=== PATIENT | male | born 1965 | race Caucasian/White ===

== ENCOUNTER 2019-07-20 01:51 | Outpatient (CLI) | payer BC, SELFPAY ==
[2019-07-20 08:52] LABS: Calculated LDL 141 mg/dL; Cholesterol 224 mg/dL (50-200); Glucose 100 mg/dL (70-100); HDL Cholesterol 42 mg/dL (40-60); Triglyceride 207 mg/dL (30-150)
[2019-07-21 10:50] LABS: Hepatitis C Ab w Rflx HCV PCR Negative (NEGAT)
== END 2019-07-20 02:11 ==
PROVIDERS: PCP Family Medicine; Visit Provider Family Medicine
DX: Z00.00 Encounter for general adult medical examination without abnormal findings (principal); R73.01 Impaired fasting glucose; E66.9 Obesity, unspecified; Z11.59 Encounter for screening for other viral diseases; Z13.220 Encounter for screening for lipoid disorders
CPT/HCPCS: 36415; 80061; 82947; 86803; 83036

== ENCOUNTER 2020-01-24 14:47 | Outpatient (REF) | payer BC, SELFPAY ==
[2020-01-24 18:31] LABS: Hemoglobin A1C 5.9 % (3.8-5.6)
== END 2020-01-24 15:07 ==
LOC: NCHCN 14:47
PROVIDERS: PCP Family Medicine; Visit Provider Family Medicine
DX: R73.03 Prediabetes (principal)
CPT/HCPCS: 83036

== ENCOUNTER 2020-10-20 18:35 | Outpatient (REF) | payer BC, SELFPAY ==
[2020-10-20 14:36] LABS: ALT 32 U/L (16-63); AST 21 U/L (15-37); Albumin 3.9 g/dL (3.4-5.0); Alkaline Phosphatase 100 U/L (46-116); Anion Gap 7.8 mmol/L (3-11); BUN 10 mg/dL (7-18); Bilirubin, Total 0.5 mg/dL (0.2-1.0); CO2 29.2 mmol/L (21.0-32.0); CREATININE 1.1 mg/dL (0.70-1.30); Calcium 9.3 mg/dL (8.5-10.1); Calculated LDL 140 mg/dL (<100); Chloride 103 mmol/L (98-107); Cholesterol 246 mg/dL (<200); Glucose 104 mg/dL (74-106); HDL Cholesterol 47 mg/dL (40-60); Potassium 4.6 mmol/L (3.5-5.1); Sodium 140 mmol/L (136-145); Total Protein 7.4 g/dL (6.4-8.2); Triglyceride 297 mg/dL (<150)
[2020-10-20 14:37] LABS: Hemoglobin A1C 5.9 % (<5.7)
== END 2020-10-20 18:36 | disposition home or self-care (01) ==
LOC: NCHCN 18:35
PROVIDERS: PCP Family Medicine; Visit Provider Family Medicine
DX: R73.03 Prediabetes (principal)
CPT/HCPCS: 80053; 80061; 83036

== ENCOUNTER 2021-03-12 15:44 | Outpatient (CLI) | payer OTHER, SELFPAY ==
--- NOTE | 2021-03-12 14:45 | DI.RAD_ITS ---
Exam(s) XR THUMB LT EXAM: XR THUMB LT CLINICAL HISTORY: pain and tingling base left thumb, M79.645. TECHNIQUE: 2D digital imaging was performed. COMPARISON: No exams were available for comparison FINDINGS: There is soft tissue swelling over the interphalangeal joint region. No evidence of acute fracture l angely. However, on the lateral view there are 2 small calcific densities in the soft tissues, 1 volar 1 dorsal to the head-neck region of the proximal phalanx. Neither of these are actually within or i mmediately adjacent to the interphalangeal joint. The metacarpophalangeal joint appears unremarkable . There are mild degenerative changes at the articulation between the thumb metacarpal and trapezium . No ominous osseous lesions in the thumb. IMPRESSION: DATA REPOSITORY: RADIATION DOSE DELIVERED:
== END 2021-03-12 16:04 ==
PROVIDERS: PCP Family Medicine; Visit Provider Nurse Practitioner Family
DX: M79.645 Pain in left finger(s) (principal); R20.2 Paresthesia of skin
CPT/HCPCS: 73140

== ENCOUNTER 2021-10-22 16:45 | Outpatient (REF) | payer BC, SELFPAY ==
[2021-10-22 16:15] LABS: Glucose 101 mg/dL (74-106)
[2021-10-22 16:31] LABS: Hemoglobin A1C 5.8 % (<5.7)
== END 2021-10-22 16:46 | disposition home or self-care (01) ==
LOC: NCHCN 16:45
PROVIDERS: PCP Family Medicine; Visit Provider Family Medicine
DX: R73.03 Prediabetes (principal)
CPT/HCPCS: 82947; 83036

== ENCOUNTER 2022-10-11 15:26 | Outpatient (REF) | payer BC, SELFPAY ==
[2022-10-13 12:21] LABS: COVID-19 RT-PCR UVMMC Result Positive (Negative)
== END 2022-10-11 15:27 | disposition home or self-care (01) ==
LOC: LBN 15:26
PROVIDERS: PCP Family Medicine; Visit Provider Physician Assistant Medical
DX: Z20.822 Contact with and (suspected) exposure to COVID-19 (principal)
CPT/HCPCS: U0003

== ENCOUNTER 2022-12-04 23:55 | Outpatient (REF) | payer BC, SELFPAY ==
[2022-12-05 15:50] LABS: Hemoglobin A1C 5.9 % (<5.7)
[2022-12-06 13:12] LABS: HIV-1/2 Ag & Ab Screen Negative (Negative)
== END 2022-12-04 23:56 | disposition home or self-care (01) ==
LOC: NCHCN 23:55
PROVIDERS: PCP Family Medicine; Visit Provider Family Medicine
DX: Z00.00 Encounter for general adult medical examination without abnormal findings (principal); R73.03 Prediabetes; Z11.4 Encounter for screening for human immunodeficiency virus [HIV]
CPT/HCPCS: 87389; 83036

== ENCOUNTER 2022-12-11 19:49 | Outpatient (REF) | payer BC, SELFPAY ==
[2022-12-11 19:59] LABS: HCT 43.6 % (40.0-50.0); HGB 15.3 g/dL (13.5-17.5); MCH 31.9 pg (27.0-33.0); MCHC 35.1 % (32.0-36.0); MCV 91 fL (80-95); MPV 10.2 fL (8.0-11.0); Platelet Count 209 10^3/uL (130-400); RBC 4.79 10^6/uL (4.36-5.78); RDW-SD 44.1 fL; WBC 6.46 10^3/uL (4.4-10.8)
[2022-12-11 20:38] LABS: Anion Gap 8.4 mmol/L (3-11); BUN 20 mg/dL (7-18); CO2 27.6 mmol/L (21.0-32.0); Calcium 9.9 mg/dL (8.5-10.1); Calculated LDL 156 mg/dL (<100); Chloride 104 mmol/L (98-107); Cholesterol 253 mg/dL (<200); Folate 15.4 ng/mL (8.6-20.0); Glucose 99 mg/dL (74-106); HDL Cholesterol 45 mg/dL (40-60); Potassium 4.2 mmol/L (3.5-5.1); Sodium 140 mmol/L (136-145); Triglyceride 260 mg/dL (<150); Vitamin B12 238 pg/mL (193-986)
== END 2022-12-11 19:50 | disposition home or self-care (01) ==
LOC: NCHCN 19:49
PROVIDERS: PCP Family Medicine; Visit Provider Family Medicine
DX: R20.2 Paresthesia of skin (principal); I10 Essential (primary) hypertension; Z00.00 Encounter for general adult medical examination without abnormal findings
CPT/HCPCS: 80048; 80061; 85027; 82607; 82746

== ENCOUNTER 2023-03-14 15:37 | Outpatient (REF) | payer BC, SELFPAY ==
[2023-03-14 19:30] LABS: ALT 43 U/L (16-63); Calculated LDL 70 mg/dL (<100); Cholesterol 151 mg/dL (<200); HDL Cholesterol 47 mg/dL (40-60); Triglyceride 173 mg/dL (<150); Vitamin B12 314 pg/mL (193-986)
== END 2023-03-14 15:38 | disposition home or self-care (01) ==
LOC: NCHCN 15:37
PROVIDERS: PCP Family Medicine; Visit Provider Family Medicine
DX: E78.5 Hyperlipidemia, unspecified (principal); E53.8 Deficiency of other specified B group vitamins
CPT/HCPCS: 80061; 82607; 84460

== ENCOUNTER 2023-07-21 12:04 | Outpatient (REF) | payer BC, SELFPAY ==
[2023-07-21 17:12] LABS: Vitamin B12 499 pg/mL (193-986)
== END 2023-07-21 12:05 | disposition home or self-care (01) ==
LOC: NCHCN 12:04
PROVIDERS: PCP Family Medicine; Visit Provider Family Medicine
DX: E53.8 Deficiency of other specified B group vitamins (principal)
CPT/HCPCS: 82607

== ENCOUNTER 2024-07-15 01:39 | Outpatient (CLI) | payer OTHER, SELFPAY ==
--- NOTE | 2024-07-15 06:45 | DI.MRI_ITS ---
Exam(s) MR UPPER JOINT RT WO EXAM: MR UPPER JOINT RT WO CLINICAL HISTORY: Persistent pain,rotator cuff impingement syndrome rt shoulder,m75.41. TECHNIQUE: Multiplanar multisequence MRI was performed. COMPARISON: None. FINDINGS: BONES: There is no fracture or contusion pattern. Small degenerative cysts near the greater tuberosit y. JOINTS:The acromioclavicular joint shows hypertrophy and inferior spurring with impingement on the di stal supraspinatus muscle tendon junction. The glenohumeral joint is normal. TENDONS: Supraspinatus: Edema in distal supraspinatus muscle and tendon. Severe partial tear with retraction articular sided fibers to the level of the tip of the acromion. Infraspinatus: Unremarkable. Subscapularis: Unremarkable. Teres [place]: Unremarkable. Biceps and [place]: Unremarkable. MUSCLES: Unremarkable. GLENOID LABRUM: Mild degenerative changes. No visible discrete tear. SOFT TISSUES: Unremarkable. OTHER: Subacromial and subdeltoid bursae shows a small amount of fluid. Small amount of fluid in marinelli bcoracoid bursa.. IMPRESSION: Degenerative changes of the AC joint causing impingement on the supraspinatus. Tendinosis and severe partial tear of supraspinatus tendon. DATA REPOSITORY:
== END 2024-07-15 01:59 ==
LOC: DI 01:39
PROVIDERS: PCP Family Medicine; Visit Provider Nurse Practitioner Family
DX: M75.41 Impingement syndrome of right shoulder (principal)
CPT/HCPCS: 73221

== ENCOUNTER 2024-08-04 07:57 | Emergency (ER) | payer BC, SELFPAY ==
[2024-08-04] VITALS (27 sets, daily range): BP systolic 136–208; BP diastolic 87–122; PULSE 48–78; RESP 12–35; TEMP 35.8–36.4; O2SAT 83–100
--- NOTE | 2024-08-04 08:13 | W.ED.GENAD ---
Discharge Plan Disposition Patient Disposition: Home Condition: Stable Discharge Details Clinical Impression: Abdominal pain of unknown cause, GERD (gastroesophageal reflux disease), Nausea & vomiting, Renal cyst, Hepatic cyst Primary Care Provider: Zulma Mcginnis ED Provider: Sandra Xie Home Meds and New Rx's Prescriptions: New simethicone 125 mg capsule 125 mg PO BID-QID PRNQty: 14 0RF No Action omeprazole 20 mg capsule,delayed release(DR/EC) 20 mg PO DAILY TobraDex 0.3-0.1 % ointment 1 applic ophthalmic (eye) Q8H PRN fluorouracil [Efudex] 5 % cream 1 applic topical BID acetaminophen [Tylenol Extra Strength] 500 mg tablet 500 mg PO Q6H PRN ibuprofen 200 mg tablet 800 mg PO Q6H PRN atorvastatin 40 mg tablet 40 mg PO QPM Patient Comments: TAKE ONE TABLET BY MOUTH EVERY EVENING Discharge Instructions Instructions: Abdominal Pain, Adult ED Additional Instructions: You were seen in the emergency department today for evaluation of abdominal pain with vomiting. In our department he had a full physical examination performed, had laboratory studies that revealed an elevation in your lactate which improved with fluids. You have a CT scan that did not show any abnormalities which might explain your symptoms. We did notice some simple cysts on your liver and kidney which were evaluated by ultrasound and are not concerning and do not require any additional follow-up. It is safe for you to go home and to continue to take all of your medications as prescribed. I provided you with a short course of Zofran for nausea management to maintain your hydration, as well as a medication called simethicone which can help with bloating gas pain. Please follow-up with your primary care provider in the next few days to discuss this visit and any symptoms that change, worsen, or persist. You can return to the emergency department if you develop any sudden change or worsening of your abdominal pain, nausea or vomiting that prevents you from eating and drinking, bloody stools, or any other symptoms that cause you concern. Thank you for allowing us to be part of your care. HPI General Mode of arrival: ambulatory. Date/Time Provider Initiated Documentation: 08/04/24 07:59. Limitations to Documentation: no limitations. Information obtained by: patient and old records reviewed. HPI Narrative: HPI: This is a 58-year-old male patient with a past medical history significant for GERD, who is presenting for evaluation of abdominal pain. The patient reports that he woke up this morning to go to the bathroom and felt typical for him, but shortly after noted some lower abdominal cramping that radiates around to his back. He states that he had the urge to pass stool, it took some time on the toilet before he did eventually pass a large, normal stool with no blood or diarrhea. He also urinated without pain or hematuria. He reports that this did not improve his pain, and additionally notes that he had nausea and 2 episodes of nonbloody emesis. The patient reports he has never had pain like this before. States that he prior to this morning he was in his normal state of health, without fevers, injury, illness. He states that he has never had abdominal surgery, and had a colonoscopy without concerning findings. He tried Pepto-Bismol and his prescribed omeprazole for his symptoms this morning without improvement. Exam: Gen: Awake and alert, appears uncomfortable and unable to find a comfortable position HEENT: Non-icteric sclera Neck: Supple Lungs: No apparent respiratory distress, normal respiratory effort. Lung sounds clear and equal bilaterally CV: Appears well perfused, heart with regular rate and rhythm, strong distal pulses Abdomen: Non-distended, soft, minimal tenderness to palpation without rigidity, rebound, or guarding. MSK: Moves 4 extremities without apparent limitation in ROM Skin: Visualized skin without rashes, cyanosis. Neuro: Normal Gait, no obvious focal deficits or facial asymmetry. Speaks in full, clear sentences. Psych: Appropriate for situation. MDM: This is a 58-year-old male patient presenting for evaluation of abdominal pain with nausea and vomiting. My differential includes but is not limited to mesenteric ischemia, especially given the patient's hypertension and his pain out of proportion to physical examination. Certainly considered other intra-abdominal abnormalities including SBO, diverticulitis, appendicitis, gastroenteritis, pancreatitis, hepatitis, cholecystitis, nephrolithiasis, pyelonephritis/UTI. The patient has no testicular pain to suggest torsion, and the brief duration of the symptoms does decrease my concern for metabolic and electrolyte derangements, kidney injury, dehydration. Will obtain laboratory workup to include CBC, CMP, lipase, lactate, UA. I will obtain a CTA of the abdomen and pelvis to better characterize any abnormalities. I will provide the patient with intravenous Tylenol and Zofran for initial management of symptoms. ED Course: I independently interpreted the laboratory studies, which show no significant leukocytosis, anemia, or thrombocytopenia. The chemistry panel is without evidence of electrolyte abnormality, kidney dysfunction, or liver injury. Lactate is elevated to 4.1 however, for which she received a liter of IV fluids. I independently interpreted the CT scan and discussed the findings with the hospitalist. There is no evidence of vascular abnormality or ischemia of the bowel, and otherwise the CT abdomen pelvis does not show any abnormalities which might account for the patient's symptoms. There were some incidental findings including liver cyst, renal cyst, and radiology recommended that we obtain an ultrasound to better characterize one of the renal cysts. This was done and this was found to be a simple hemorrhagic cyst, not requiring any additional follow-up. On reassessment the patient has had improvement in his pain, has not had vomiting and tolerated p.o. intake. I prescribed him simethicone for ongoing gas pain, and we discussed return precautions. At this time, the patient has had a full medical evaluation and is safe for discharge to home. They are hemodynamically stable, ambulatory, and tolerating PO. They are understanding of the follow-up plan and return precautions. They left our facility without incident. Sandra Xie MD Related Data Home Medications ?Medication ?Instructions ?Recorded ?Confirmed fluorouracil 5 % topical cream 1 applic topical BID 08/16/22 08/04/24 (Efudex) omeprazole 20 mg capsule,delayed 20 mg PO DAILY 08/16/22 08/04/24 release tobramycin-dexamethasone 0.3 %-0.1 1 applic ophthalmic (eye) Q8H PRN 08/16/22 08/04/24 % eye ointment (TobraDex) acetaminophen 500 mg tablet 500 mg PO Q6H PRN 08/19/22 08/04/24 (Tylenol Extra Strength) ibuprofen 200 mg tablet 800 mg PO Q6H PRN 08/19/22 08/04/24 atorvastatin 40 mg tablet 40 mg PO QPM 08/04/24 08/04/24 simethicone 125 mg capsule 125 mg PO BID-QID PRN #14 caps 08/04/24 Previous Rx's ?Medication ?Instructions ?Recorded simethicone 125 mg capsule 125 mg PO BID-QID PRN #14 caps 08/04/24 Allergies Allergy/AdvReac Type Severity Reaction Status Date / Time No Known Allergies Allergy Verified 08/04/24 08:00 General Stated Complaint: Abd Prob PO: 3 Course Vital Signs Vital signs: Vital Signs Temperature 35.8 C L 08/04/24 08:01 Pulse 65 08/04/24 08:01 Respiratory Rate 18 08/04/24 08:01 Blood Pressure 208/122 H 08/04/24 08:01 Pulse Oximetry 99 08/04/24 08:01 Temperature 35.8 C L 08/04/24 08:01 Temperature Source Temporal Artery Scan 08/04/24 08:01 Pulse 65 08/04/24 08:01 Respiratory Rate 18 08/04/24 08:01 Respiratory Effort Normal, Non-Labored 08/04/24 08:03 Blood Pressure 208/122 H 08/04/24 08:01 Blood Pressure Position Sitting 08/04/24 08:01 Pulse Oximetry 99 08/04/24 08:01 Oxygen Delivery Method Room Air 08/04/24 08:01 Oxygen Flow Rate 0 08/04/24 08:01 Pain Level 7 08/04/24 08:01 Comment pepto [employer] MIRROR 08/04/24 08:01 Medical Decision Making Quality:SDOH Health Related Social Needs: No Data to Display PFSH All Active Problems (Updated 08/04/24 @ 13:43 by Sandra Xie MD) Hepatic cyst (Acute) Renal cyst (Acute) Nausea & vomiting (Acute) Abdominal pain of unknown cause (Acute) Supraspinatus tendon tear (Acute) Rotator cuff impingement syndrome of right shoulder (Acute) GERD (gastroesophageal reflux disease) (Chronic) Anal fissure (Acute) Strain of left knee (Acute) Actinic keratosis (Acute) Trigger finger of left thumb (Acute) Neuroma (Acute) Numbness and tingling of left thumb (Acute) Pain of left thumb (Acute) Sebaceous cyst (Acute) 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) Back pain (Acute) Medical History Sensorineural hearing loss, unilateral (10/18/13) Seborrheic keratosis (02/05/16) Basal cell carcinoma (02/05/16) Obesity Surgical History History of shoulder surgery left History of colonoscopy (~08/2015) History of vasectomy (~09/2004) Social History Smoking/Tobacco Use Status: Never Smoking risk assessment performed?: Yes Alcohol Intake: current Alcohol Intake frequency: 0-2 drinks per day Drug use: Socially Substance use type: marijuana Household members: spouse Housing: house Current gender identity: male Do you feel safe at home: Yes Do you feel safe in your relationship?: Yes
[2024-08-04 08:28] LABS: Abs Immature Grans 0.05 10^3/uL (0.0-0.06); Absolute Basophil Count 0.03 10^3/uL (0.0-0.2); Absolute Eosinophil Count 0.01 10^3/uL (0.0-0.7); Absolute Lymphocyte Count 1.42 10^3/uL (1.2-3.4); Absolute Monocyte Count 0.48 10^3/uL (0.1-0.8); Absolute Neutrophil Count 9.54 10^3/uL (1.2-6.7); Basophils % 0.3 %; Eosinophils % 0.1 %; HCT 44.9 % (40.0-50.0); HGB 15.4 g/dL (13.5-17.5); Immature Grans % 0.4 %; Lymphocytes % 12.3 %; MCH 32.2 pg (27.0-33.0); MCHC 34.3 % (32.0-36.0); MCV 94 fL (80-95); MPV 9.4 fL (8.0-11.0); Monocytes % 4.2 %; Neutrophils % 82.7 %; Platelet Count 217 10^3/uL (130-400); RBC 4.79 10^6/uL (4.36-5.78); RDW 12.6 % (11.8-14.1); RDW-SD 43.3 fL; WBC 11.54 10^3/uL (4.4-10.8)
[2024-08-04 08:33] LABS: Lactate 4.15 mmol/L (0.9-1.7)
[2024-08-04] MEDS: ACETAMINOPHEN 1,000 MG/100 ML BAG 400 MG IVPB (08:38)
[2024-08-04] MEDS: Ondansetron 4 MG/2 ML VIAL IVP (08:39)
[2024-08-04] MEDS: Lactated Ringers 1,000 ML 1000 ML IV (08:43)
[2024-08-04 08:55] LABS: ALT 49 U/L (16-63); AST 35 U/L (15-37); Albumin 4.1 g/dL (3.4-5.0); Alkaline Phosphatase 118 U/L (46-116); Anion Gap 11.8 mmol/L (3-11); BUN 24 mg/dL (7-18); CO2 22.2 mmol/L (21.0-32.0); CREATININE 1.2 mg/dL (0.70-1.30); Chloride 106 mmol/L (98-107); Estimated GFR 69.23 (mL/min/1.73m2); Glucose 173 mg/dL (74-106); Lipase 44 U/L (16-77); Magnesium 1.8 mg/dL (1.8-2.4); Potassium 3.5 mmol/L (3.5-5.1); Sodium 140 mmol/L (136-145); Total Protein 7.7 g/dL (6.4-8.2)
[2024-08-04 08:57] LABS: Troponin I < 4 ng/L (<or=76)
--- NOTE | 2024-08-04 09:41 | DI.CT_ITS ---
Exam(s) CT ABDOMEN PELVIS CTA EXAM: CT ABDOMEN PELVIS CTA CLINICAL HISTORY: lower abd pain, out of proportion to exam. TECHNIQUE: Imaging Protocol: Axial computed tomography images with coronal and sagittal reformatted images were created and reviewed CONTRAST MATERIAL: Intravenous: Omnipaque 350 Contrast volume:100 ml Oral: None COMPARISON: No exams were available for comparison FINDINGS: ABDOMEN: AORTA: There is no evidence of abdominal aortic aneurysm nor dissection.There is no aneurysmal dilatation of the common iliac arteries.The celiac and superior mesenteric arteries are patent.No significant sten osis at the origin of these vessels and no intraluminal thrombi evident. The inferior mesenteric art anibal is also patent. Renal arteries are patent without significant stenosis nor evidence of fibromusc ular dysplasia. No significant stenosis evident at the aortic bifurcation nor within the common and external iliac arteries. There are no ischemic appearing bowel loops. There is no ascites. LIVER: There are few small sub cm cysts in the liver. There is also a benign-appearing finding in th e right hepatic lobe measuring 1.3 x 1.2 cm. Probable benign cyst. GALLBLADDER/BILIARY: No obvious gallbladder pathology. CBD is not dilated. PANCREAS: No evidence of pancreatic mass nor dilatation of the pancreatic duct. SPLEEN: Spleen is not enlarged. There are no intrasplenic lesions. Splenic and portal veins are joseph nt. ADRENALS: There are no significant adrenal masses. KIDNEYS: Left kidney unremarkable. In the inferior pole of the right kidney there is an exophytic 1. 4 x 1.2 cm nodule which is too dense to be a simple cyst there is also a benign cyst in the right kid rachel measuring 1 cm. Does not require further workup. No calculi nor hydronephrosis. ABDOMINAL AORTA: See above LYMPH NODES: There is no retroperitoneal nor para-aortic adenopathy. No obvious mesenteric masses. ABDOMINAL WALL: No evidence of significant anterior abdominal wall hernia. GI: There is no evidence of bowel obstruction, free air, nor abscess. PELVIS: LYMPH NODES: There is no intrapelvic nor inguinal adenopathy. GI: No evidence of appendicitis.No evidence of sigmoid diverticulitis. URINARY BLADDER: No calculi nor masses evident REPRODUCTIVE: Prostate mildly enlarged. Seminal vesicles unremarkable. OSSEOUS: No significant osseous lesions. There is ankylosis of the sacroiliac joints noted. Also si gnificant 5th left-sided facet arthropathy in the lower lumbar spine. This is on the left side at th e L4-5 level. IMPRESSION: 1. No evidence of abdominal aortic aneurysm nor dissection nor significant atherosclerotic disease of the abdominal aorta and iliac arteries. There is also no significant atherosclerotic disease within the celiac and superior mesenteric and inferior mesenteric arteries nor within the renal arteries. 2. There are no ischemic appearing bowel loops. There is no ascites. 3. There are benign cysts in the liver noted. Largest measures 1.3 cm 4. There is a 1.4 x 1.2 cm well-defined exophytic nodule off the inferior pole the right kidney which is too dense to be a simple cyst. Probably hemorrhagic cyst but cannot exclude more concerning path ology. Follow-up ultrasound of this finding will be able to determine if it is solid or cystic. RADIATION DOSE DELIVERED: 1,304.88mGy.cm Total DLP DATA REPOSITORY: All CT scans at this facility are submitted to the National Radiology Data Registry (NRDR) Dose Index Registry (DIR) with the [employer] (A[employer]). RADIATION OPTIMIZATION: All CT scans at this facility use at least one of these dose optimization te chniques: automated exposure control; mA and/or kV adjustment per patient size (includes targeted exa ms where dose is matched to clinical indication); or iterative reconstruction.
[2024-08-04] MEDS: Normal Saline - Diluent 50 ML VIAL IJ (09:42)
[2024-08-04] MEDS: Omnipaque 350 MG/ML 500 ML BTL-Imaging package 100 ML IJ (09:43)
[2024-08-04 10:03] LABS: Bilirubin Negative (Negative); Blood Negative (Negative); Clarity Clear (Clear); Glucose Negative (Negative); Ketones 15 mg/dL (Negative); Leukocyte Esterase Negative (Negative); Nitrite Negative (Negative); Specific Gravity 1.015 (1.005-1.025); Urobilinogen 0.2 mg/dL (Up to 0.2)
--- NOTE | 2024-08-04 10:08 | DI.US_ITS ---
Exam(s) US ABDOMEN LIMITED EXAM: US ABDOMEN LIMITED CLINICAL HISTORY: R. renal cyst, abd pain, eval kidney and gallbladd TECHNIQUE: Ultrasound abdomen performed using standard protocol. COMPARISON: No exams were available for comparison FINDINGS: There is no ascites evident. LIVER: There are few small cysts in the liver corresponding to the findings on CT scan. Largest of t hese measures 1.3cm, corresponding to findings on CT scan. GALLBLADDER/BILIARY: There are no gallstones. No gallbladder wall edema nor pericholecystic fluid. The common hepatic duct isnot dilated, measuring 4mm at the level of allison hepatis. PANCREAS: There is no evidence of pancreatic mass nor dilatation of the pancreatic duct. RIGHT KIDNEY:There are 2 cysts in the right kidney. One is at the level just above the midpole and m easures 1.2 x 1.2 cm. The other cyst is exophytic off the inferior pole and correspond to what is de scribed on the recent CT scan. This has appearance of a cyst on ultrasound, measuring 1.6 x 1.4 cm. There are no solid lesions seen in the right kidney on ultrasound. No calculi nor hydronephrosis. IMPRESSION: 1. The finding exophytic off the inferior pole the right kidney seen on today's CT scan is shown to be a cyst on today's ultrasound. Therefore it is a hemorrhagic cyst. The other cyst in the right ki dney of similar size is simple. There are no ominous solid lesions in the right kidney. 2. Few small cysts are noted in the liver measuring up to 1.3 cm, as seen on CT scan earlier today. 3. No abnormal gallbladder findings nor dilatation of the biliary tree. DATA REPOSITORY:
[2024-08-04 10:22] LABS: Lactate 1.9 mmol/L (0.6-1.4)
[2024-08-04 10:35] LABS: Bacteria Negative HPF (Negative); C & S Indicated? No; Casts Negative LPF (Negative); Crystals Negative HPF (Negative); Epithelial Cells Negative HPF (Negative); Mucus Negative (Negative); Other Cells Negative (Negative); RBC Negative HPF (0-2)
== END 2024-08-04 11:56 | disposition home or self-care (01) ==
PROVIDERS: Emergency Provider Emergency Medicine; PCP Family Medicine
DX: R10.30 Lower abdominal pain, unspecified (principal); R11.2 Nausea with vomiting, unspecified; K76.89 Other specified diseases of liver; N28.1 Cyst of kidney, acquired; K21.9 Gastro-esophageal reflux disease without esophagitis
CPT/HCPCS: 36415; 80053; 83690; 96365; 96366; 96375; 99285; 74174; 76705; 81003; 81015; 83605; 83735; 84484; 85025; J0131; J2405

== ENCOUNTER 2024-08-04 12:21 | Emergency (ER) | payer BC, SELFPAY ==
[2024-08-04 12:26] VITALS: BP 173/104; PULSE 90; RESP 20; TEMP 37; O2SAT 99
[2024-08-04] MEDS: MORPHine IR 15 MG TAB PO (13:43)
--- NOTE | 2024-08-04 14:18 | ED.GENADUL_ITS ---
Discharge Plan Disposition Patient Disposition: Home Condition: Stable Discharge Details Clinical Impression: Abdominal pain of unknown cause, GERD (gastroesophageal reflux disease), Nausea & vomiting, Renal cyst, Hepatic cyst Primary Care Provider: Zulma Mcginnis ED Provider: Sandra Xie Home Meds and New Rx's Prescriptions: New Morphine Ir, 4 Tabs/Btl [Msir, 4 Tabs/Btl] 15 mg PO DISPENSE Qty: 0 0RF No Action omeprazole 20 mg capsule,delayed release(DR/EC) 20 mg PO DAILY TobraDex 0.3-0.1 % ointment 1 applic ophthalmic (eye) Q8H PRN fluorouracil [Efudex] 5 % cream 1 applic topical BID acetaminophen [Tylenol Extra Strength] 500 mg tablet 500 mg PO Q6H PRN ibuprofen 200 mg tablet 800 mg PO Q6H PRN atorvastatin 40 mg tablet 40 mg PO QPM Patient Comments: TAKE ONE TABLET BY MOUTH EVERY EVENING simethicone 125 mg capsule 125 mg PO BID-QID PRNQty: 14 0RF Discharge Instructions Instructions: Abdominal Pain, Adult ED Additional Instructions: You were seen in the emergency department for ongoing abdominal pain and nausea. In our department you had a full physical examination performed. As you had just had laboratory studies and imaging we did not repeat those, but did provide you with different medications for management of your symptoms. Unfortunately, we are not always able to determine the exact cause of pain in the emergency department, though certainly I am concerned for inflammation or infection of your bowels, which should resolve with time and supportive care. I did provide you with a short course of morphine to be taken for severe pain, and recommend that you continue Tylenol and ibuprofen as needed. You need to follow-up with your primary care provider in the next few days if your symptoms have not improved. Thank you for allowing us to be part of your care. HPI General Mode of arrival: ambulatory . Date/Time Provider Initiated Documentation: 08/04/24 12:32 . Limitations to Documentation: no limitations . Information obtained by: patient and old records reviewed . HPI Narrative: HPI: This is a 58-year-old male patient with a history of GERD who is presenting for evaluation of worsening of abdominal pain. Of note, the patient was seen in this emergency department less than an hour ago, during which time he had a full laboratory and imaging evaluation that did not show any significant abnormalities to account for his symptoms. Please see the entirety of my last note for documentation of that visit. The patient reports that after he left our facility, he had a another wave of worsening pain in his lower abdomen, pulled his car over and took Tylenol and Zofran that I prescribed him at our last visit. He states that he was concerned by the onset of pain, prompting him to come back for reevaluation. In the time between checking in and being roomed the patient reports that his pain has improved, but has not resolved, currently a 5 out of 10. He states that he has not had any vomiting, was able to pass urine. He states that he is mostly concerned about symptom management, and understands that his diagnostic workup was completed and unfortunately did not identify a specific cause, but did rule out life threats. Exam: Gen: Awake and alert, in no apparent distress HEENT: Non-icteric sclera Neck: Supple Lungs: No apparent respiratory distress, normal respiratory effort. CV: Appears well perfused, strong distal pulses Abdomen: Non-distended, soft, nontender, without rigidity, rebound, or guarding MSK: Moves 4 extremities without apparent limitation in ROM Skin: Visualized skin without rashes, cyanosis. Neuro: Normal Gait, no obvious focal deficits or facial asymmetry. Speaks in full, clear sentences. Psych: Appropriate for situation. MDM: This is a 58-year-old male patient presenting for evaluation of worsening abdominal pain. At this time, the patient has had a complete emergent abdominal evaluation, which did not reveal any evidence of mesenteric ischemia, aortic disease, appendicitis, diverticulitis, pancreatitis, etc. I am concerned for gastroenteritis, inflammatory colitis, certainly this patient could have an infectious process developing. Finally, I considered irritable bowel syndromes. At this time, given the patient's recent workup, we had a shared decision-making conversation regarding the use of intravenous access and repeat labs and at this time we will hold on repeat evaluation. We will focus on symptom management given the patient's ongoing benign abdominal examination, and I provided him with a dose of oral morphine. This was successful in controlling his pain, and I did provide him with an additional ibuprofen as his kidney function is within normal limits. ED Course: On reassessment the patient reports slight improvement in his pain, has not had further episodes of vomiting, and is amenable to discharge with multimodal pain management, nausea control, and outpatient provider follow-up. At this time, the patient has had a full medical evaluation and is safe for discharge to home. They are hemodynamically stable, ambulatory, and tolerating PO. They are understanding of the follow-up plan and return precautions. They left our facility without incident. Sandra Xie MD Related Data Home Medications ?Medication ?Instructions ?Recorded ?Confirmed fluorouracil 5 % topical cream 1 applic topical BID 08/16/22 08/04/24 (Efudex) omeprazole 20 mg capsule,delayed 20 mg PO DAILY 08/16/22 08/04/24 release tobramycin-dexamethasone 0.3 %-0.1 1 applic ophthalmic (eye) Q8H PRN 08/16/22 08/04/24 % eye ointment (TobraDex) acetaminophen 500 mg tablet 500 mg PO Q6H PRN 08/19/22 08/04/24 (Tylenol Extra Strength) ibuprofen 200 mg tablet 800 mg PO Q6H PRN 08/19/22 08/04/24 MORPHine IR, 4 tabs/btl [MSIR, 4 15 mg PO DISPENSE ##0 08/04/24 tabs/btl] atorvastatin 40 mg tablet 40 mg PO QPM 08/04/24 08/04/24 simethicone 125 mg capsule 125 mg PO BID-QID PRN #14 caps 08/04/24 Previous Rx's ?Medication ?Instructions ?Recorded MORPHine IR, 4 tabs/btl [MSIR, 4 15 mg PO DISPENSE ##0 08/04/24 tabs/btl] simethicone 125 mg capsule 125 mg PO BID-QID PRN #14 caps 08/04/24 Allergies Allergy/AdvReac Type Severity Reaction Status Date / Time No Known Allergies Allergy Verified 08/04/24 08:00 General Stated Complaint: Abd Prob PO: 3 Course Vital Signs Vital signs: Vital Signs Temperature 37.0 C 08/04/24 12: Pulse 90 08/04/24 12: Respiratory Rate 20 08/04/24 12:26 Blood Pressure 173/104 H 08/04/24 12: Pulse Oximetry 99 08/04/24 12: Temperature 37.0 C 08/04/24 12: Pulse 90 08/04/24 12:26 Respiratory Rate 20 08/04/24 12:26 Blood Pressure 173/104 H 08/04/24 12:26 Blood Pressure Position Sitting 08/04/24 12:26 Pulse Oximetry 99 08/04/24 12:26 Oxygen Delivery Method Room Air 08/04/24 12:26 Oxygen Flow Rate 0 08/04/24 12:26 Medical Decision Making Quality:SDOH Health Related Social Needs: No Data to Display PFSH All Active Problems (Updated 08/04/24 @ 14:20 by Sandra Xie MD) Hepatic cyst (Acute) Renal cyst (Acute) Nausea & vomiting (Acute) Abdominal pain of unknown cause (Acute) Supraspinatus tendon tear (Acute) Rotator cuff impingement syndrome of right shoulder (Acute) GERD (gastroesophageal reflux disease) (Chronic) Anal fissure (Acute) Strain of left knee (Acute) Actinic keratosis (Acute) Trigger finger of left thumb (Acute) Neuroma (Acute) Numbness and tingling of left thumb (Acute) Pain of left thumb (Acute) Sebaceous cyst (Acute) 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) Back pain (Acute) Medical History Sensorineural hearing loss, unilateral (10/18/13) Seborrheic keratosis (02/05/16) Basal cell carcinoma (02/05/16) Obesity Surgical History History of shoulder surgery left History of colonoscopy (~08/2015) History of vasectomy (~09/2004) Social History Smoking/Tobacco Use Status: Never Smoking risk assessment performed?: Yes Alcohol Intake: current Alcohol Intake frequency: 0-2 drinks per day Drug use: Socially Substance use type: marijuana Household members: spouse Housing: house Current gender identity: male Do you feel safe at home: Yes Do you feel safe in your relationship?: Yes
[2024-08-04] MEDS: MORPHine IR 15 MG TAB, 4 TABS/BTL PO (14:47)
[2024-08-04] MEDS: Ibuprofen 600 MG TAB PO (14:47)
[2024-08-04 14:49] VITALS: BP 173/104; PULSE 90; RESP 20; TEMP 37; O2SAT 99
== END 2024-08-04 14:50 | disposition home or self-care (01) ==
PROVIDERS: Emergency Provider Emergency Medicine; PCP Family Medicine
DX: N28.1 Cyst of kidney, acquired (principal); K76.89 Other specified diseases of liver; R11.2 Nausea with vomiting, unspecified; K21.9 Gastro-esophageal reflux disease without esophagitis; R10.9 Unspecified abdominal pain
CPT/HCPCS: 99283

== ENCOUNTER 2024-08-31 13:52 | Outpatient (REF) | payer BC, SELFPAY ==
[2024-08-31 16:05] LABS: Anion Gap 14.1 mmol/L (3-11); BUN 15 mg/dL (7-18); CO2 22.9 mmol/L (21.0-32.0); Chloride 107 mmol/L (98-107); Estimated GFR 86.16 (mL/min/1.73m2); Glucose 106 mg/dL (74-106); Potassium 4.2 mmol/L (3.5-5.1); Sodium 144 mmol/L (136-145)
[2024-08-31 17:17] LABS: Hemoglobin A1C 5.8 % (<5.7)
== END 2024-08-31 13:53 | disposition home or self-care (01) ==
LOC: NCHCN 13:52
PROVIDERS: PCP Family Medicine; Visit Provider Family Medicine
DX: I10 Essential (primary) hypertension (principal); R73.03 Prediabetes
CPT/HCPCS: 80048; 83036

== ENCOUNTER 2025-03-04 14:41 | Outpatient (REF) | payer BC, SELFPAY ==
[2025-03-04 21:22] LABS: BUN 17 mg/dL (7-18); CREATININE 1.2 mg/dL (0.70-1.30); Chloride 104 mmol/L (98-107); Glucose 147 mg/dL (74-106); Hemoglobin A1C 5.9 % (<5.7); Potassium 4.2 mmol/L (3.5-5.1); Sodium 141 mmol/L (136-145)
== END 2025-03-04 14:42 | disposition home or self-care (01) ==
LOC: NCHCN 14:41
PROVIDERS: PCP Family Medicine; Visit Provider Family Medicine
DX: I10 Essential (primary) hypertension (principal); R73.03 Prediabetes
CPT/HCPCS: 80048; 83036

== ENCOUNTER 2025-04-21 09:37 | Day surgery (SDC) | payer BC, SELFPAY ==
[2025-04-21 09:59] VITALS: BP 161/91; PULSE 85; RESP 20; TEMP 36.3; O2SAT 98
[2025-04-21] MEDS: Lactated Ringers 1,000 ML 80 ML IV (10:15)
--- NOTE | 2025-04-21 11:34 | W.ANESPRE ---
General Info Date of Service Date Performed: 04/21/25 Height: 6 ft 2 in Weight: 104.1 kg Body Mass Index (BMI): 29.5 Surgical Procedure: Operation Date: 04/21/25 12:05 Proposed Procedure Side Surgeon p Colonoscopy Christiane De Souza MD Meds Allergies and Home Medications Allergies Allergy/AdvReac Type Severity Reaction Status Date / Time No Known Allergies Allergy Verified 04/21/25 10:08 Home Medication ?Medication ?Instructions ?Recorded fluorouracil 5 % topical cream 1 applic topical BID 08/16/22 (Efudex) acetaminophen 500 mg tablet 500 mg PO Q6H PRN 08/19/22 (Tylenol Extra Strength) ibuprofen 200 mg tablet 800 mg PO Q6H PRN 08/19/22 atorvastatin 40 mg tablet 40 mg PO QPM 08/04/24 simethicone 125 mg capsule 125 mg PO BID-QID PRN #14 caps 08/04/24 cyclobenzaprine 5 mg tablet 5 mg PO TID PRN 03/28/25 mecobalamin (vitamin B12) 1,000 1,000 mcg PO DAILY 03/28/25 mcg chewable tablet bisacodyl 5 mg tablet,delayed 5 mg PO ONCE colonscopy bowel prep 04/06/25 release (Dulcolax (bisacodyl)) #4 tabs omeprazole 20 mg capsule,delayed 20 mg PO DAILY PRN 04/06/25 release polyethylene glycol 3350 17 238 g PO ONCE colonoscopy prep 04/06/25 gram/dose oral powder #238 grams Current Visit Medications: Current Medications Generic Name Dose Route Start Last Admin Trade Name Freq PRN Reason Stop Dose Admin Ringer's Solution 1,000 mls @ 80 mls/hr 04/21/25 06:00 04/21/25 10:15 IV 05/20/25 23:59 80 mls/hr INFUSION SHAMA Administration IV Miscellaneous Supplies 1 each 04/21/25 06:00 Iv Access IV 05/20/25 23:59 DIRECTED SHAMA Sodium Biphosphate/Sodium Phosphate 133 - 266 ml 04/20/25 13:04 Na Phosphate Enema-Adult 133 Ml Btl OR 05/20/25 13:03 DIRECTED PRN Sodium Chloride 0 ml 04/21/25 06:00 Normal Saline Flush 10 Ml Syr IV 05/20/25 23:59 PRN PRN Sodium Chloride 0 ml 04/21/25 06:00 Normal Saline 10 Ml Vial IJ 05/20/25 23:59 DIRECTED PRN Sterile Water 0 ml 04/21/25 06:00 Water,Injection,Sterile 10 Ml Vial IJ 05/20/25 23:59 DIRECTED PRN PFSH Active Problems Active Problems: Problem Status Onset Code Supraspinatus tendon tear Acute M75.100 Rotator cuff impingement syndrome of right shoulder Acute M75.41 GERD (gastroesophageal reflux disease) Chronic K21.9 Anal fissure Acute K60.2 Strain of left knee Acute S86.912A Actinic keratosis Acute L57.0 Trigger finger of left thumb Acute M65.312 Neuroma Acute D36.10 Numbness and tingling of left thumb Acute R20.0, R20.2 Pain of left thumb Acute M79.645 Sebaceous cyst Acute L72.3 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) Hyperlipidemia Blepharitis Paresthesia Vitamin B12 deficiency History of basal cell cancer Sensorineural hearing loss, unilateral (10/18/13) Seborrheic keratosis (02/05/16) Basal cell carcinoma (02/05/16) Obesity Surgical History Surgical History History of shoulder surgery left History of colonoscopy (~08/2015) History of vasectomy (~09/2004) Tobacco Smoking/Tobacco Use Status: Never Passive smoking exposure: No Alcohol Alcohol Intake: current Alcohol intake frequency: 0-2 drinks per day Substance Use Substance use: Socially Substance use type: marijuana Vital Signs and Lab Results Vital Signs Most Recent Vital Signs in EMR: Most Recent Vital Signs Temp Pulse Resp BP Pulse Ox 36.3 C L 85 20 161/91 H 98 04/21/25 09:59 04/21/25 09:59 04/21/25 09:59 04/21/25 09:59 04/21/25 09:59 Anesthesia Assessment and Plan Anesthesia History Personal History: No History of Anesthesia Complications Family History: No Family History of Anesthesia Complications Exercise Tolerance Exercise Tolerance: Metabolic Equivalents>4 Pertinent Negatives Pertinent Negatives: No Symptoms of GERD Cardiac & Pulmonary Exam Cardiac Exam: Normal S1/S2 Heart Sounds Pulmonary Exam: Clear Bilateral Breath Sounds Implantable Cardiac Device Does patient have a Pacemaker or an ICD?: No Airway Exam Known Difficult Airway: No Mallampati Class: 2 Mouth Opening: Normal (> 3cm) Thyromental Distance: Greater than 3 cm Neck Range of Motion: Full ROM Neck Circumference: Normal Teeth Condition: Normal Dentition ASA Classification ASA Score: ASA 2 Emergency Case?: No NPO Status NPO Status: NPO Clears >2 hours, Solids >8 hours Anesthesia Plan Resuscitation Status: Full Code Anesthesia Technique: General Anesthesia Airway Planned: Natural Airway Monitors Used: Standard Monitors
[2025-04-21 11:35] VITALS: BMI 29.5
--- NOTE | 2025-04-21 11:41 | W.PM.DSUDISC ---
Date of service: 04/21/25 Discharge Plan Disposition Patient Disposition: Home Condition: Stable Discharge Details Attending Provider: Christiane De Souza Primary Care Provider: Zulma Mcginnis Recommendations for Follow Up Recommended tests to be ordered by follow up provider: None Home Meds and New Rx's Prescriptions: Discontinued bisacodyl [Dulcolax (bisacodyl)] 5 mg tablet,delayed release (DR/EC) 5 mg PO ONCE Qty: 4 0RF Rx Instructions: take per colonoscopy instructions polyethylene glycol 3350 17 gram/dose powder 238 g PO ONCE Qty: 238 0RF Rx Instructions: take per colonoscopy instructions No Action fluorouracil [Efudex] 5 % cream 1 applic topical BID acetaminophen [Tylenol Extra Strength] 500 mg tablet 500 mg PO Q6H PRN ibuprofen 200 mg tablet 800 mg PO Q6H PRN omeprazole 20 mg capsule,delayed release(DR/EC) 20 mg PO DAILY PRN cyclobenzaprine 5 mg tablet 5 mg PO TID PRN mecobalamin (vitamin B12) 1,000 mcg tablet,chewable 1,000 mcg PO DAILY atorvastatin 40 mg tablet 40 mg PO QPM Patient Comments: TAKE ONE TABLET BY MOUTH EVERY EVENING simethicone 125 mg capsule 125 mg PO BID-QID PRNQty: 14 0RF Discharge Instructions Additional Instructions: Colonoscopy showed two small polys, both removed. 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 I am not worried they are cancer, but at least one looks like a typical precancerous adenoma polyp. Next colonoscopy timing (when to weed the garden next) depends on what kind of polyp they are, so I will notify you in writing when results are available. I suspect you will be due again in 5 years due to two small noncancerous polyps. i Stand Alone Forms: Anesthesia Discharge Inst., Colonoscopy Post Instructions, Jeffrey Drummond (DSU) Activity:: Activity as Tolerated Diet:: As Tolerated Discharge Orders Discharge Orders: Discharge Order (Routine); Ordered 04/21/25 Ordered By: Christiane De Souza DS: Diagnosis Discharge Diagnosis (1) Screening for colorectal cancer: Status: Acute (2) Polyp of transverse colon: Status: Acute (3) Sigmoid polyp: Status: Acute
--- NOTE | 2025-04-21 11:50 | BOWEL_PTH ---
PATIENT: Ajit Norman LOC: [facility] U#:[id number] AGE/SX: 59/M ROOM: RE04/21/[address]: Christiane De Souza MD : [id number] BED: DIS: 04/21/2025 SPEC #: [id number] RECD: 04/21/25 13:25 STATUS: BETSY REJuan #: [id number] JAN: 04/21/25 11:[address]: Christiane De Souza DEPT: Surgical Specimen RECD BY: Ophelia Bryan ENTERED: 04/21/25 13:26 SP TYPE: Bowel OTHR DR: Zulma Mcginnis Tissues: 1 - BIOPSY BOWEL 2 - BIOPSY BOWEL Procedures: GROSS AND MICRO LEVEL 4 Comments: [id number]
--- NOTE | 2025-04-21 12:06 | COLE_ITS ---
Date of service: 04/21/25 Time of Service: 12:06 Colonoscopy Report Date of procedure: 04/21/25 Pre-op diagnosis general: screening for colorectal cancer Post-op diagnosis procedure note: same (1. transverse colon polyp. 2. sigmoid polyp) Procedure: colonoscopy eith polypectomy - cold forceps and hot snare Surgeon: Christiane De Souza Anesthesia Type: MAC Estimated blood loss (mL): 2 Pathology: other (1. transverse colon polyp. 2. sigmoid polyp) Complications: None Disposition: same day Prep: Miralax/Dulcolax (good quality) Procedure Description: Patient is here for routine screening colonoscopy. Informed consent was obtained and the patient was taken to the procedure area. The patient was placed in left lateral decubitus position on the procedure table. Timeout was performed. Anesthesia was induced. A lubricated colonoscope was inserted through the anus and passed to the cecum. The cecum was identified by the ileocecal valve and the appendiceal orifice. The scope was then slowly with drawn and the colonic and rectal mucosa examined. TI intubated and examined, appears normal. Transverse colon 3mm sessile polyp excised with cold forceps. Sigmoid polyp 5mm pedunculated excised with hot snare and retrieved with polyp trap. No diverticulosis was seen. The scope was retroflexed in the anorectal junction examined. Uncomplicated internal hemorrhoids with prominent tags are present. Assessment and plan; Two polyps seen and removed. Average risk patient. Next colonoscopy due in 5 years if either polyp is adenomatous, or 10 years if both are hyperplastic.
[2025-04-21 12:08] VITALS: BP 159/99; PULSE 76; RESP 18; TEMP 36.6; O2SAT 97
--- NOTE | 2025-04-21 12:11 | W.ANESPOSTOP ---
Postoperative Evaluation Date, Time and Location Date Performed: 04/21/25 Time Performed: 12:12 Patient Location: Day Surgery Unit Vital Signs Most Recent Imported Vital Signs: Most Recent Vital Signs Temp Pulse Resp BP Pulse Ox 36.3 C L 85 20 161/91 H 98 04/21/25 09:59 04/21/25 09:59 04/21/25 09:59 04/21/25 09:59 04/21/25 09:59 Most Recent Manually Entered Vital Signs: Adult Blood Pressure: 159/99 Heart Rate: 76 Respirations: 14 Oxygen Saturation (%): 97 Temperature (C): 36.6 C Pain Score (0-10 Scale): 0 Pain Score Most Recent Pain Score: Most Recent Pain Score Pain Level 0 04/21/25 09:59 Assessment Mental Status: Awake (Alert & Oriented to Patient Baseline) Airway and Respiratory Function: Patent airway with normal (patient baseline) respiratory exam Cardiovascular Function: Hemodynamically Stable Hydration Status: Adequately Hydrated Nausea & Vomiting: No Nausea or Vomiting Pain: Pt. Denies Any Pain Peripheral Nerve Block: Patient did not receive a nerve block
[2025-04-21 12:15] VITALS: BP 159/99; PULSE 76; RESP 14; TEMPC 36.6; O2SAT 97
[2025-04-21 12:37] VITALS: BP 126/90; PULSE 71; RESP 16; TEMP 36.1; O2SAT 97
== END 2025-04-21 12:58 | disposition home or self-care (01) ==
LOC: SUR 09:37
PROVIDERS: PCP Family Medicine; Visit Provider Surgery
PROC: 0DJD8ZZ Inspection of Lower Intestinal Tract, Via Natural or Artificial Opening Endoscopic (ICD-10-PCS; CPT 45378; principal; 2025-04-21 12:00)
DX: Z12.11 Encounter for screening for malignant neoplasm of colon (principal); Z12.12 Encounter for screening for malignant neoplasm of rectum; D12.5 Benign neoplasm of sigmoid colon; K63.89 Other specified diseases of intestine
CPT/HCPCS: 45385; 45380; 88305; J2003; J2704